=== PATIENT | female | born 1950 | race Caucasian/White ===

== ENCOUNTER → 2024-09-07 | Outpatient (CLI) | payer MEDICARE ==
--- NOTE | 2024-09-14 22:45 | MR ---
EXAMINATION TYPE: MR knee LT wo con DATE OF EXAM: 09/07/2024 COMPARISON: Outside bilateral knee x-rays August 28, 2024 HISTORY: Left knee pain and swelling inner and behind knee since Aug 10, 2024 TECHNIQUE: Multiplanar, multisequence images of the knee is performed without IV contrast. FINDINGS: MEDIAL MENISCUS: Horizontal increased signal posterior horn does not extend to articular surface. LATERAL MENISCUS: Anterior and posterior horns are intact without tear. CRUCIATE LIGAMENTS: The anterior and posterior cruciate ligaments are intact and unremarkable. COLLATERAL LIGAMENTS: The medial collateral ligament and lateral collateral ligament complex are inta ct and unremarkable. EXTENSOR MECHANISM: Visualized quadriceps and patellar tendons are intact. EFFUSION: Small size suprapatellar joint effusion. POPLITEAL CYST: Moderate size popliteal/tijerina cyst. TRICOMPARTMENT SPACES: Mild to moderate tricompartment joint space loss and spurring. 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 Cartilaginous loss medial lateral tibiofemoral compartments is seen. BONE MARROW SIGNAL: Linear diminished T1 signal involving the medial tibial plateau sagittal image 26 and coronal image 19 extending to articular surface measuring up to 13 mm with surrounding increased T2 signal. There is adjacent deep subcutaneous edema noted. Small area of increased T2 signal medial aspect distal lateral femoral condyle near ACL origin. OTHER: No additional significant abnormality is appreciated. IMPRESSION: 1. Radio-occult Subchondral insufficiency fracture medial aspect medial tibial plateau with surroundi ng abnormal bone marrow edema. 2. At least intrasubstance tear posterior horn medial meniscus, no definitive full-thickness meniscal tear. 3. Small-size suprapatellar joint effusion. 4. Moderate size popliteal cyst. [facility], , 09/14/2024 10:42 PM
== END | disposition home or self-care (01) ==
LOC: RADMRIMAIN 19:00
PROVIDERS: ATTEND Orthopaedic Surgery
DX: S83.242A Other tear of medial meniscus, current injury, left knee, initial encounter (principal); M71.22 Synovial cyst of popliteal space [Baker], left knee; M25.462 Effusion, left knee; X58.XXXA Exposure to other specified factors, initial encounter